=== PATIENT | male | born 1935 | race Caucasian/White ===

== ENCOUNTER → 2018-01-21 | Outpatient (CLI) | payer MEDICARE, OTHER | END | disposition home or self-care (01) | LOC: PCVCCLINIC 15:37 | DX: I48.1 Persistent atrial fibrillation (principal); I12.9 Hypertensive chronic kidney disease with stage 1 through stage 4 chronic kidney disease, or unspecified chronic kidney disease; E11.22 Type 2 diabetes mellitus with diabetic chronic kidney disease; N18.3 Chronic kidney disease, stage 3 (moderate); E78.5 Hyperlipidemia, unspecified; I35.0 Nonrheumatic aortic (valve) stenosis; I73.9 Peripheral vascular disease, unspecified; Z79.4 Long term (current) use of insulin; Z88.8 Allergy status to other drugs, medicaments and biological substances; Z87.891 Personal history of nicotine dependence; Z79.82 Long term (current) use of aspirin; Z79.899 Other long term (current) drug therapy | CPT/HCPCS: 80061; 93005; G0463 ==

== ENCOUNTER → 2018-04-28 | Outpatient (CLI) | payer MEDICARE, OTHER ==
--- NOTE | 2018-04-28 11:36 | PCVCIMAG ---
APPROVED REPORT Study performed: 04/28/2018 10:36:22 EXAM: Comprehensive 2D, Doppler, and color-flow Echocardiogram Patient Location: Echo lab Room #: 2Status: routine BSA: 1.86 HR: 67 bpmBP: 178/70 mmHg Rhythm: Atrial Fibrillation Other Information Study Quality: Good Risk Factors: Cardiac Risk Factors: HTN, Hyperlipidemia, DM Indications Aortic Valve Disease Atrial Fibrillation 2D Dimensions IVSd: 11.81 (7-11mm)LVOT Diam: 22.12 (18-24mm) LVDd: 43.60 mm PWd: 11.62 (7-11mm)Ascending Ao: 36.46 (22-36mm) LVDs: 26.07 (25-40mm) Left Atrium: 40.24 (27-40mm) Aortic Root: 29.12 mm LV Single Plane 4CH: 52.93 % LV Single Plane 2CH: 65.90 % Biplane EF: 60.1 % Volumes Left Atrial Volume (Systole) Single Plane 4CH: 83.77 mLSingle Plane 2CH: 91.26 mL Biplane LA Volume: 89.00 mLLA ESV Index: 47.00 mL/m2 Aortic Valve AoV Peak González.: 2.04 m/s AO Peak Gr.: 16.91 mmHgLVOT Max P.14 mmHg AO Mean Gr.: 10.04 mmHgLVOT Mean P.77 mmHg AO V2 Mean: 1.52 m/sLVOT Max V: 0.86 m/s AO V2 VTI: 46.78 cmLVOT Mean V: 0.63 m/s ANISH (VTI): 1.76 [id number] V1 VTI: 21.41 cm ANISH Vmax: 1.62 cm2 SV (LVOT): 82.22 mL Mitral Valve MV E Max González.: 1.14 m/s MV PHT: 44.53 ms MVA (PHT): 4.94 cm2 TDI E/Lateral E': 12.67E/Medial E': 14.25 Medial E' González.: 0.08 m/s Lateral E' González.: 0.09 m/s Pulmonary Valve PV Peak González.: 0.92 m/sPV Peak Gr.: 3.37 mmHg Tricuspid Valve TR Peak González.: 2.97 m/s TR Peak Gr.: 35.39 mmHg TV Vmax: 0.90 m/sPA Pressure: 42.00 mmHg Left Ventricle The left ventricle is normal size. There is normal LV segmental wall motion. Mild concentric left ventricular hypertrophy. The left ventricular systolic function is normal. The left ventricular ejection fraction is within the normal range. LVEF is 55-60%. This study is not technically sufficient to allow evaluation of the LV diastolic function due to atrial fibrillation. Right Ventricle The right ventricle is normal size. The right ventricular systolic function is normal. Atria Left atrium is moderately dilated. Right atrium is moderately dilated. Aortic Valve Aortic valve is trileaflet, moderately calcified. No aortic regurgitation is present. Mild aortic stenosis. Mean aortic valve gradient is 10 mmHg. Peak aortic valve gradient is 17mmHg. Calculated ANISH by the continuity equation is 1.6 cm2. Mitral Valve The mitral valve is normal in structure. Mild mitral regurgitation. No evidence of mitral valve stenosis. Tricuspid Valve The tricuspid valve is normal in structure. Mild tricuspid regurgitation with a PA pressure of 42 mmHg. Pulmonic Valve The pulmonary valve is normal in structure. There is no pulmonic valvular regurgitation. Great Vessels The aortic root is normal in size. Aortic arch is normal in caliber. IVC is normal in size and collapses >50% with inspiration. Pericardium There is no pericardial effusion. There is no pleural effusion. <Conclusion> The left ventricular systolic function is normal. There is normal LV segmental wall motion. LVEF 55-60%. Both atria are moderately dilated. Aortic valve is trileaflet, moderately calcified. Mild aortic stenosis. (Mean aortic valve gradient is 10 mmHg. Peak aortic valve gradient is 17mmHg). Calculated ANISH by the continuity equation is 1.6 cm2. The mitral valve is normal in structure. Mild mitral regurgitation. Mild tricuspid regurgitation with a pulmonary artery pressure of 42 mmHg. There is no pericardial effusion.
== END | disposition home or self-care (01) ==
LOC: PCVCIMAG 10:24
PROVIDERS: ATTEND Internal Medicine
DX: I08.3 Combined rheumatic disorders of mitral, aortic and tricuspid valves (principal); I48.1 Persistent atrial fibrillation; E11.9 Type 2 diabetes mellitus without complications; G47.33 Obstructive sleep apnea (adult) (pediatric); I73.9 Peripheral vascular disease, unspecified; I12.9 Hypertensive chronic kidney disease with stage 1 through stage 4 chronic kidney disease, or unspecified chronic kidney disease; E11.22 Type 2 diabetes mellitus with diabetic chronic kidney disease; N18.3 Chronic kidney disease, stage 3 (moderate); E78.5 Hyperlipidemia, unspecified; Z87.891 Personal history of nicotine dependence; Z79.4 Long term (current) use of insulin
CPT/HCPCS: 93005; 93306; G0463

== ENCOUNTER → 2018-11-02 | Outpatient (CLI) | payer MEDICARE, OTHER | END | disposition home or self-care (01) | LOC: PCVCCLINIC 10:00 | PROVIDERS: ATTEND Internal Medicine | DX: I48.1 Persistent atrial fibrillation (principal); I35.0 Nonrheumatic aortic (valve) stenosis; I12.9 Hypertensive chronic kidney disease with stage 1 through stage 4 chronic kidney disease, or unspecified chronic kidney disease; E11.51 Type 2 diabetes mellitus with diabetic peripheral angiopathy without gangrene; E11.22 Type 2 diabetes mellitus with diabetic chronic kidney disease; N18.3 Chronic kidney disease, stage 3 (moderate); E78.5 Hyperlipidemia, unspecified; R94.31 Abnormal electrocardiogram [ECG] [EKG]; K21.9 Gastro-esophageal reflux disease without esophagitis; Z79.4 Long term (current) use of insulin; Z79.899 Other long term (current) drug therapy; Z91.041 Radiographic dye allergy status; Z87.891 Personal history of nicotine dependence; Z72.89 Other problems related to lifestyle | CPT/HCPCS: 36415; 80061; 93005; G0463 ==

== ENCOUNTER → 2019-05-16 | Outpatient (CLI) | payer MEDICARE, OTHER ==
--- NOTE | 2019-05-16 16:49 | PCVCIMAG ---
APPROVED REPORT Study performed: 05/16/2019 14:30:15 EXAM: Comprehensive 2D, Doppler, and color-flow Echocardiogram Patient Location: Echo lab Status: routine BSA: 1.83 HR: 63 bpmBP: 134/78 mmHg Rhythm: Atrial Fibrillation Other Information Study Quality: Adequate Indications Diabetes Atrial Fibrillation aortic stenosis 2D Dimensions IVSd: 16.50 (7-11mm)LVOT Diam: 21.80 (18-24mm) LVDd: 37.49 mm PWd: 13.91 (7-11mm)Ascending Ao: 38.94 (22-36mm) LVDs: 20.54 (25-40mm) Left Atrium: 47.71 (27-40mm) Aortic Root: 39.48 mm LV Single Plane 4CH: 45.11 % LV Single Plane 2CH: 57.43 % Biplane EF: 52.3 % Volumes Left Atrial Volume (Systole) Single Plane 4CH: 82.20 mLSingle Plane 2CH: 94.39 mL LA ESV Index: 49.00 mL/m2 Aortic Valve AoV Peak González.: 2.11 m/s AO Peak Gr.: 17.92 mmHgLVOT Max P.36 mmHg AO Mean Gr.: 8.83 mmHgLVOT Mean P.25 mmHg AO V2 Mean: 1.37 m/sLVOT Max V: 0.77 m/s AO V2 VTI: 43.62 cmLVOT Mean V: 0.53 m/s ANISH (VTI): 1.44 [id number] VTI: 16.80 cm ANISH Vmax: 1.35 cm2 SV (LVOT): 62.68 mL Mitral Valve E/A Ratio: 3.1 MV Decel. Time: 185.37 ms MV E Max González.: 0.86 m/s MV A González.: 0.28 m/s Pulmonary Valve PV Peak González.: 0.80 m/sPV Peak Gr.: 2.57 mmHg Tricuspid Valve TR Peak González.: 2.81 m/s TR Peak Gr.: 31.68 mmHg Left Ventricle The left ventricle is normal size. There is normal LV segmental wall motion. Moderate concentric left ventricular hypertrophy. The left ventricular systolic function is normal. The left ventricular ejection fraction is within the normal range. LVEF is 50-55%. This study is not technically sufficient to allow evaluation of the LV diastolic function due to atrial fibrillation. Right Ventricle The right ventricle is normal size. The right ventricular systolic function is normal. Atria Left atrium is severely dilated. Right atrium is moderately dilated. Aortic Valve The aortic valve is moderately to severely calcified, mildly stenotic. Mild aortic regurgitation. Calculated aortic valve area is 1.4 cm2 (Peak pressure gradient of 18 mmHg and mean pressure gradient of 9 mmHg). Mitral Valve The mitral valve is normal in structure. Mild to moderate mitral regurgitation. No evidence of mitral valve stenosis. Tricuspid Valve The tricuspid valve is normal in structure. Mild tricuspid regurgitation with PAP of 40 mmHg. Pulmonic Valve The pulmonary valve is normal in structure. Mild pulmonic regurgitation. Great Vessels Aortic root is dilated to 3.9 cm. 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 IVC is normal in size and collapses >50% with inspiration. Pericardium There is no pericardial effusion. There is no pleural effusion. <Conclusion> The left ventricular systolic function is normal. There is normal LV segmental wall motion. LVEF is 50-55%. Left atrium is severely dilated. The aortic valve is moderately to severely calcified, mildly stenotic and insufficient Calculated aortic valve area is 1.4 cm2 (Peak pressure gradient of 18 mmHg and mean pressure gradient of 9 mmHg). The mitral valve is normal in structure. Mild to moderate mitral regurgitation. Mild tricuspid regurgitation with pulmonary artery pressure of 40 mmHg. 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 There is no pericardial effusion.
== END | disposition home or self-care (01) ==
LOC: PCVCIMAG 14:21
PROVIDERS: ATTEND Internal Medicine
DX: I08.0 Rheumatic disorders of both mitral and aortic valves (principal); I48.21 Permanent atrial fibrillation; E11.22 Type 2 diabetes mellitus with diabetic chronic kidney disease; N18.3 Chronic kidney disease, stage 3 (moderate); E78.5 Hyperlipidemia, unspecified; I73.9 Peripheral vascular disease, unspecified; K21.9 Gastro-esophageal reflux disease without esophagitis; G47.33 Obstructive sleep apnea (adult) (pediatric); Z79.4 Long term (current) use of insulin
CPT/HCPCS: 36415; 80061; 93005; 93306; G0463